=== PATIENT | female | born 1980 | race Caucasian/White ===

== ENCOUNTER 2024-03-17 00:11 | Observation (INO) ==
[2024-03-17 01:36] LABS: ABS Basophils 0.1 10^3/uL (0.0-0.1); ABS Eosinophils 0.1 10^3/uL (0.0-0.5); ABS Lymphocytes 1.5 10^3/uL (1.0-4.8); ABS Monocytes 0.7 10^3/uL (0.0-0.9); Eosinophil % 0.6 %; Hematocrit 34.5 % (35-45); Hemoglobin 11.3 g/dL (11.5-14.3); Lymphocyte % 12.3 %; Mean Corpuscular Hemoglobin 27.7 pg (27-33); Mean Corpuscular Hgb Conc 32.7 g/dL (31-36); Mean Corpuscular Volume 84.8 fL (80-97); Mean Platelet Volume 7.5 fL (7.5-11.2); Platelet Count 338 10^3/uL (150-450); Red Blood Count 4.07 10^6/uL (3.63-4.92); Red Cell Distribution Width 15.6 % (12-17); White Blood Count 12.3 10^3/uL (3.8-11.8)
[2024-03-17 01:59] LABS: Urine Appearance Turbid; Urine Bilirubin Negative (Negative); Urine Blood 3+ (Negative); Urine Glucose Negative (Negative); Urine Ketones Negative (Negative); Urine Nitrite Negative (Negative); Urine Protein 1+ (>=30 mg/dL) (Negative); Urine Specific Gravity 1.032 (1.002-1.030); Urine Urobilinogen Negative (Negative)
[2024-03-17 02:02] LABS: Urine Bacteria Absent /HPF (Absent); Urine Red Blood Cell 3+(>10/hpf) /HPF (0-Trace); Urine Squamous Epithelial Cell Present /HPF (Absent); Urine White Blood Cell 3+(>20/hpf) /HPF (0-Trace)
[2024-03-17 02:03] LABS: Urine Color Light-Orange
[2024-03-17 02:20] LABS: Albumin 4.1 g/dL (3.2-5.2); Albumin/Globulin Ratio 1.3 (1-3); Calcium 9.2 mg/dL (8.6-10.3); Creatinine, Serum 0.98 mg/dL (0.51-0.95); Globulin 3.2 g/dL (2-4); Total Bilirubin 0.4 mg/dL (0.2-1.0); Total Protein 7.3 g/dL (6.4-8.9); eGFR CKD-EPI 72.5 (>60)
[2024-03-17 02:26] LABS: HCG Pregnancy 0.67 mIU/mL
[2024-03-17] MEDS: Iohexol 300 (CONTRAST) 10 ML SDV IV ONE (04:07)
[2024-03-17] MEDS: Lactated Ringers 1000 ml BAG 1,000 ML IV ONE (04:23)
[2024-03-17] MEDS: cefTRIAXone 1 gm/50 mL D5W 1 GM/50 ML BAG IV ONE (05:20)
[2024-03-17] MEDS ORDERED: Ondansetron 4 mg VIAL 2 MG/ML 2 ml VIAL IV PRN (08:31)
[2024-03-17] MEDS ORDERED: Morphine 2 MG/ML SYRINGE IV PRN (08:33)
[2024-03-17] MEDS: Morphine 4 MG/ML VIAL (1 ml) IV ONE (09:13)
[2024-03-17] MEDS: Ondansetron 4 mg VIAL 2 MG/ML 2 ml VIAL IV ONE (09:13)
[2024-03-17] MEDS: NS 0.9% 1000 ml BAG 1,000 ML IV SCH (09:18)
[2024-03-17] MEDS ORDERED: Lidocaine 2% PF 5 ML VIAL ONE (10:02)
[2024-03-17] MEDS ORDERED: Propofol 10 MG/ML 20 ML BTL ONE ×3 (10:02→10:35)
[2024-03-17] MEDS ORDERED: Midazolam 2 mg/2 ml VIAL 1 mg/ml 2 ml VIAL (2 mg) ONE (10:02)
[2024-03-17] MEDS ORDERED: fentaNYL 100 mcg/2 ml 50 MCG/ML VIAL ONE (10:02)
[2024-03-17] MEDS ORDERED: Sodium Citrate/Citric Acid LIQ 15 ML UDC ONE (10:04)
[2024-03-17] MEDS ORDERED: Naloxone 0.4 mg VIAL 0.4 mg/ml 1 ml VIAL IV PRN ×2 (10:06→10:07)
[2024-03-17] MEDS ORDERED: Prochlorperazine 5 mg/ml 2 ml VIAL (10 mg) IV PRN (10:07)
[2024-03-17] MEDS ORDERED: fentaNYL 100 mcg/2 ml 50 MCG/ML VIAL IV PRN (10:07)
[2024-03-17] MEDS: Sodium Citrate/Citric Acid LIQ 15 ML UDC PO ONE (10:12)
[2024-03-17] MEDS ORDERED: Iohexol 180 (CONTRAST) 10 ML SDV IV ONE (10:33)
[2024-03-17] MEDS ORDERED: Acetaminophen IV 1 GM/100ML 1,000 MG/100 ML BAG IV ONE (10:42)
[2024-03-17] MEDS ORDERED: Dexamethasone IV 4 MG/ML VIAL 1 ml VIAL ONE (10:42)
[2024-03-17] MEDS ORDERED: Ondansetron 4 mg VIAL 2 MG/ML 2 ml VIAL ONE (10:42)
[2024-03-17] MEDS: Buffered Lidocaine 1% SYRIN 1 ml INTRADERM ONE (13:04)
[2024-03-17] MEDS: Lactated Ringers 1000 ml BAG 1,000 ML IV SCH (13:04)
[2024-03-17] MEDS ORDERED: Lactated Ringers 1000 ml BAG 1,000 ML IV SCH (14:00)
[2024-03-18 05:07] LABS: ABS Lymphocytes 1.8 10^3/uL (1.0-4.8); ABS Monocytes 0.6 10^3/uL (0.0-0.9); ABS Neutrophils 7.4 10^3/uL (1.5-7.6); Eosinophil % 0.1 %; Hematocrit 32.1 % (35-45); Hemoglobin 10.8 g/dL (11.5-14.3); Lymphocyte % 18.7 %; Mean Corpuscular Hemoglobin 28.5 pg (27-33); Mean Corpuscular Hgb Conc 33.7 g/dL (31-36); Mean Corpuscular Volume 84.5 fL (80-97); Mean Platelet Volume 7.7 fL (7.5-11.2); Platelet Count 312 10^3/uL (150-450); Red Blood Count 3.79 10^6/uL (3.63-4.92); Red Cell Distribution Width 15.3 % (12-17); White Blood Count 9.8 10^3/uL (3.8-11.8)
[2024-03-18] MEDS: cefTRIAXone 1 gm/50 mL D5W 1 GM/50 ML BAG IV SCH (05:22)
[2024-03-18 05:41] LABS: Calcium 8.8 mg/dL (8.6-10.3); Creatinine, Serum 0.64 mg/dL (0.51-0.95); Potassium 4.3 mmol/L (3.5-5.0)
[2024-03-18 10:18] VITALS: BP 105/86
== END 2024-03-18 10:45 | disposition home or self-care (01) ==
LOC: EDHOLD 00:11 → ED 00:11 → SUATTDRO 08:31 → EDHOLD 09:57 → AA 09:57 → SSU 12:03
PROVIDERS: ADMIT Family Medicine; ATTEND Internal Medicine